=== PATIENT | male | born 1965 | race Caucasian/White ===

== ENCOUNTER → 2019-10-23 14:46 | Outpatient (BNVA) | payer SELFPAY | PROVIDERS: Family Provider Family Medicine; PCP Family Medicine; Referring Provider Family Medicine; Visit Provider Dermatology | DX: D48.9 Neoplasm of uncertain behavior, unspecified (principal); L57.8 Other skin changes due to chronic exposure to nonionizing radiation; L57.0 Actinic keratosis | CPT/HCPCS: 11102; 17000; 17003; 88305; 99203 ==

== ENCOUNTER → 2019-10-25 10:40 | Outpatient (BNVA) | payer SELFPAY | PROVIDERS: Family Provider Family Medicine; PCP Family Medicine; Visit Provider Dermatology | DX: D48.9 Neoplasm of uncertain behavior, unspecified (principal) | CPT/HCPCS: 88305 ==

== ENCOUNTER → 2019-11-20 13:49 | Outpatient (BNVA) | payer SELFPAY | PROVIDERS: Family Provider Family Medicine; PCP Family Medicine; Visit Provider Dermatology | DX: D04.21 Carcinoma in situ of skin of right ear and external auricular canal (principal); D48.9 Neoplasm of uncertain behavior, unspecified | CPT/HCPCS: 17000 ==